=== PATIENT | female | born 1935 | race Caucasian/White ===

== ENCOUNTER 2021-05-11 09:24 | Inpatient (IN) | payer MEDICARE ==
[~2021-05-11] VITALS: Ht 160 cm; Wt 72.6 kg
[2021-05-11] MEDS ORDERED: CLINDAMYCIN HC150 MG PO (09:41)
[2021-05-11] MEDS ORDERED: TRAZODONE HCL150 MG PO (09:41)
[2021-05-11] MEDS ORDERED: MOBIC7.5 MG PO (09:42)
[2021-05-11] MEDS ORDERED: HYDROXYCHLOROQ200 MG PO (09:42)
[2021-05-11] MEDS ORDERED: PEPCID AC20 MG PO (09:42)
[2021-05-11] MEDS ORDERED: FLUOROMETHOLONE5 ML LEFT EYE (09:43)
[2021-05-11] MEDS ORDERED: XALATAN 0.0052.5 ML EACH EYE (09:43)
[2021-05-11] MEDS ORDERED: TRUSOPT 2 % OPT10 ML EACH EYE (09:43)
[2021-05-11] MEDS ORDERED: CARAFATE1 G PO (09:44)
[2021-05-11] MEDS ORDERED: ZOCOR40 MG PO (09:44)
[2021-05-11 09:47] LABS: BASOPHILS 0.1 % (0-2); EOSINOPHILS 0 % (0-7); HEMOGLOBIN 11.1 g/dL (13.5-17.5); LYMPHOCYTES 4.2 % (15-50); MCH 29.8 pg (26.0-34.0); MCHC 32.8 g/dL (31.0-37.0); MCV 90.9 fL (80.0-100.0); MEAN PLATELET VOLUME 7.8 fL (7.4-10.4); MONOCYTES 3.3 % (2-11); NEUTROPHILS 92.4 % (40-80); PLATELET COUNT 120 10x3/uL (130-400); RBC 3.74 10x6/uL (4.20-6.10); RDW 19.5 % (11.5-14.5); WBC 11.2 10x3/uL (4.8-10.8)
[2021-05-11 09:54] LABS: CALC OSMOLALITY 289 mosm/kg (275-300); CALCIUM 8.9 mg/dL (8.5-10.1); CARBON DIOXIDE 19.1 mmol/L (21.0-32.0); CHLORIDE - SERUM 105 mmol/L (98-107); CREATININE - SERUM 2.2 mg/dL (0.6-1.3); GLUCOSE 130 mg/dL (74-106); POTASSIUM - SERUM 4.2 mmol/L (3.5-5.1); SODIUM 141 mmol/L (136-145); UREA NITROGEN 32 mg/dL (7-18); eGFR NON AFRICAN AMERICAN 30 mL/min (90-120)
[2021-05-11 10:08] LABS: APTT 32.9 SECONDS (22.8-39.4); INR 1.56 (0.85-1.17); PROTIME 17.3 SECONDS (11.6-15.0)
[2021-05-11 10:09] LABS: ALBUMIN 3.4 g/dL (3.4-5.0); ALKALINE PHOSPHATASE 88 U/L (30-120); ALT (SGPT) 39 U/L (10-68); BILIRUBIN - TOTAL 0.72 mg/dL (0.2-1.3); CKMB 5.2 U/L (0.0-3.6); CREATINE KINASE 778 UL (21-232); PROTEIN - SERUM 6.9 g/dL (6.4-8.2); TROPONIN-I 0.027 ng/mL (0.000-0.060)
[2021-05-11 10:52] VITALS: BP 145/81
[2021-05-11 11:01] LABS: AMORPHOUS SEDIMENT MOD LPF (<FEW); BACTERIA MOD HPF (<MOD); BILIRUBIN NEGATIVE (NEGATIVE); GRANULAR CAST 2 LPF (0-1); KETONE NEGATIVE mg/dL (< 1+); NITRITE NEGATIVE (NEGATIVE); PH 5.5 (5.0-8.0); SQUAMOUS EPITHELIAL <1 HPF (0-4); UROBILINOGEN NORMAL mg/dL (< 2); WHITE CELLS - URINE >182 HPF (0-1)
[2021-05-11 14:18] VITALS: BP 114/82
[2021-05-11 18:26] VITALS: BP 122/49
--- NOTE | 2021-05-11 19:49 | NUR ---
NS INFUSING AT 100 ML/H WITH 600 ML REMAINING TO BE INFUSED ON TRANSFER TO THE FLOOR.
--- NOTE | 2021-05-11 19:49 | NUR ---
IV SITE WAS INFILTRATED. DC'D IV. NEW IV START AT L AC 20G.
--- NOTE | 2021-05-11 19:50 | NUR ---
DAUGHTER, DAVID KHAN IS AT BEDSIDE.
--- NOTE | 2021-05-11 19:52 | NUR ---
REPORT RECEIVED. PATIENT HAS IT MADE IT TO ROOM YET.
[2021-05-11 20:00] VITALS: BP 125/74
[2021-05-11 23:42] VITALS: BP 125/74; BMI 28.4
[2021-05-12] VITALS (7 sets, daily range): BP systolic 119–177; BP diastolic 41–67
--- NOTE | 2021-05-12 07:40 | NUR ---
Lying in bed, awake/alert/oriented to person, T/R freq for C/C, incont of B/B with use of incont pads ad laya, pericare provided with daily bath and PRN, daughter at bedside, denies pain/other discomfort at this time, call light/phone/water within reach, no s/s of acute distress observed.
[2021-05-12 08:13] LABS: BASOPHILS 0 % (0-2); EOSINOPHILS 0.4 % (0-7); HEMATOCRIT 29.3 % (42.0-54.0); HEMOGLOBIN 9.8 g/dL (13.5-17.5); LYMPHOCYTES 6.8 % (15-50); MCH 30.1 pg (26.0-34.0); MCHC 33.4 g/dL (31.0-37.0); MCV 90.1 fL (80.0-100.0); MEAN PLATELET VOLUME 7.8 fL (7.4-10.4); MONOCYTES 8.4 % (2-11); NEUTROPHILS 84.4 % (40-80); RBC 3.25 10x6/uL (4.20-6.10); RDW 19.2 % (11.5-14.5)
[2021-05-12 08:27] LABS: ALBUMIN 2.7 g/dL (3.4-5.0); ANION GAP 14.1 mmol/L (8-16); BILIRUBIN - TOTAL 0.57 mg/dL (0.2-1.3); CARBON DIOXIDE 20.9 mmol/L (21.0-32.0); CREATININE - SERUM 1.8 mg/dL (0.6-1.3); MAGNESIUM - SERUM 1.5 mg/dL (1.8-2.4); PHOSPHOROUS 3.4 mg/dL (2.5-4.9); PROTEIN - SERUM 5.9 g/dL (6.4-8.2)
--- NOTE | 2021-05-12 08:32 | NUR ---
Paged RAYMOND Weinstein r/t HR 104
[2021-05-12 08:52] LABS: PLATELET COUNT 82 10x3/uL (130-400); WBC 7.4 10x3/uL (4.8-10.8)
--- NOTE | 2021-05-12 14:40 | NUR ---
Resited to posterior LFA with 22 ga after 3 attempts, dick well
[2021-05-13] VITALS: BP 140/62
--- NOTE | 2021-05-13 02:31 | NUR ---
I have reviewed this patient and I concur with the Shift Assessment completed by the Licensed Practical Nurse today this shift.
[2021-05-13 04:00] VITALS: BP 154/69
[2021-05-13 06:00] LABS: BASOPHILS 0.1 % (0-2); EOSINOPHILS 0.2 % (0-7); HEMATOCRIT 25.2 % (42.0-54.0); HEMOGLOBIN 8.6 g/dL (13.5-17.5); LYMPHOCYTES 9.3 % (15-50); MCH 30.5 pg (26.0-34.0); MCHC 33.9 g/dL (31.0-37.0); MCV 90.1 fL (80.0-100.0); MEAN PLATELET VOLUME 8.4 fL (7.4-10.4); MONOCYTES 9.9 % (2-11); NEUTROPHILS 80.5 % (40-80); RDW 19.1 % (11.5-14.5); WBC 5.8 10x3/uL (4.8-10.8)
[2021-05-13 06:02] LABS: PLATELET COUNT 99 10x3/uL (130-400)
[2021-05-13 06:03] LABS: PLATELET ESTIMATE DECREASED
[2021-05-13 06:19] LABS: ALBUMIN 2.2 g/dL (3.4-5.0); ANION GAP 11.8 mmol/L (8-16); BILIRUBIN - TOTAL 0.34 mg/dL (0.2-1.3); CALCIUM 7.9 mg/dL (8.5-10.1); CARBON DIOXIDE 21.5 mmol/L (21.0-32.0); CREATININE - SERUM 1.4 mg/dL (0.6-1.3); MAGNESIUM - SERUM 1.7 mg/dL (1.8-2.4); PHOSPHOROUS 3.7 mg/dL (2.5-4.9); POTASSIUM - SERUM 4.3 mmol/L (3.5-5.1); PROTEIN - SERUM 5.3 g/dL (6.4-8.2)
--- NOTE | 2021-05-13 07:40 | NUR ---
Lying in bed, awake/alert/oriented, T/R freq for C/C, incont of B/B with use of incont pads, pericare provided with daily bath and PRN, denies pain/other discomfort at this time, no s/s of acute distress obsereved
[2021-05-13 07:44] VITALS: BP 161/65
--- NOTE | 2021-05-13 09:24 | NUR ---
REHAB PRESCREEN RECEIVED. PATIENT IS A MANAGED MEDICATE AND WILL REQUIRE AN OCCUPATIONAL THERAPY EVALUATION. I HAVE SPOKEN WITH JORDANA STEWART CASEMANAGER. SHE WILL WORK ON GETTING AN ORDER, AND ONCE COMPLETED I WILL PROCEED WITH A CHART SCREEN AND IF SHE MEETS CRITERIA, I WILL SUBMIT TO INSURANCE. THANK YOU FOR THE REFERRAL. REYNA WRIGHT RN CLINICAL LIAISON, INPATIENT REHAB.
[2021-05-13 11:10] VITALS: BP 150/60
[2021-05-13 15:37] VITALS: BP 170/63
[2021-05-13 23:38] VITALS: BP 177/73
--- NOTE | 2021-05-14 04:02 | NUR ---
PT WITH SOME CONFUSION AT THIS TIME. PT THINKS SHE IS AT HOME FOR BRIEF MOMENTS. PT ABLE TO ANSWER PERSON,PLACE,,YEAR. YIFAN AT BEDSIDE. TEMP 98.3.WILL CONTINUE TO MONITOR PT. ROOM EXTREAMLY HOT. FAN REQUESTED. WILL SEARCH HIGH AND LOW.
[2021-05-14 05:00] VITALS: BP 188/72
[2021-05-14 06:46] LABS: HEMOGLOBIN 8.4 g/dL (12-16); MCH 30.2 pg (26.0-34.0); MCHC 33.5 g/dL (31.0-37.0); MCV 90.1 fL (80.0-100.0); MEAN PLATELET VOLUME 7.5 fL (7.4-10.4); PLATELET COUNT 96 10x3/uL (130-400); RBC 2.78 10x6/uL (4.00-5.40); RDW 19.3 % (11.5-14.5)
[2021-05-14 07:09] LABS: ALBUMIN 2.2 g/dL (3.4-5.0); ANION GAP 15.7 mmol/L (8-16); BILIRUBIN - TOTAL 0.39 mg/dL (0.2-1.3); CALCIUM 7.6 mg/dL (8.5-10.1); CARBON DIOXIDE 19.2 mmol/L (21.0-32.0); CREATININE - SERUM 1.1 mg/dL (0.6-1.3); MAGNESIUM - SERUM 1.7 mg/dL (1.8-2.4); POTASSIUM - SERUM 3.9 mmol/L (3.5-5.1); PROTEIN - SERUM 4.8 g/dL (6.4-8.2)
[2021-05-14 07:10] LABS: PHOSPHOROUS 2.7 mg/dL (2.5-4.9)
--- NOTE | 2021-05-14 07:20 | NUR ---
Lying in bed, awake/alert/confused, T/R freq for C/C, purewick catheter in place and draining to CDB and incont of bowel with pericare provided with daily bath and PRN, no s/s of pain/other discomfort such as moaning/groaning/grimacing, call light/phone/water within reach, family at bedside, no s/s of acute distress observed.
--- NOTE | 2021-05-14 08:46 | NUR ---
PATIENT LOOKS LIKE SHE WOULD BE A GOOD CANDIDATE FOR INPATIENT REHAB. WE WILL SUBMIT TO [facility] TODAY FOR AUTHORIZATION. I HAVE DISCUSSED THIS WITH JORDANA STEWART CM. AGAIN, THANK YOU FOR THE REFERRAL. REYNA WRIGHT RN CLINICAL LIAISON, INPATIENT [facility].
[2021-05-14 08:58] LABS: % SATURATION 6 % (15-55); IRON 11 ug/dl (35-150); TOTAL IRON BIND CAPACITY 175 ug/dl (260-445); UNSAT IRON BIND CAPACITY 164 ug/dl (150-375)
[2021-05-14 09:00] VITALS: BP 153/60
[2021-05-14 09:35] LABS: FERRITIN 131 ng/mL (3-244)
[2021-05-14 09:38] LABS: ANISOCYTOSIS OCC; EOSINOPHILS 7 % (0-7); HYPOCHROMASIA OCC; LYMPHOCYTES 10 % (15-50); MONOCYTES 8 % (2-11); NEUTROPHILS 64 % (40-80); PLATELET ESTIMATE DECREASED; SMUDGE CELLS OCC; TOXIC GRANULATION OCC
[2021-05-14 10:00] VITALS: Ht 160 cm; Wt 72.6 kg
[2021-05-14 12:00] VITALS: BP 128/60
--- NOTE | 2021-05-14 22:17 | NUR ---
OT NOTE: PT COMPLETED SUPINE TO SIT WITH CGA-MIN A. PT COMPLETED ADL MOBILITY WITH CGA. PT COMPLETED TOILETING TASKS WITH CGA. PT REQUIRED MAX A FOR DOFF/TREVOR SOCKS. PT REQUIRED MAX A FOR TOILET HYGIENE. PT COMPLETED HAND HYGIENE WITH CGA. PT REQUIRED EXTRA TIME AND MIN VERBAL CUES FOR TASK COMPLETION. [phone] CHRISTIANE [place]
[2021-05-14 23:30] VITALS: BP 161/65
[2021-05-15 05:21] LABS: HEMATOCRIT 24.3 % (36.0-48.0); HEMOGLOBIN 8.2 g/dL (12-16); MCH 29.8 pg (26.0-34.0); MCHC 33.7 g/dL (31.0-37.0); MCV 88.5 fL (80.0-100.0); MEAN PLATELET VOLUME 7.6 fL (7.4-10.4); PLATELET COUNT 108 10x3/uL (130-400); RBC 2.75 10x6/uL (4.00-5.40); RDW 19.2 % (11.5-14.5); WBC 3.5 10x3/uL (4.8-10.8)
[2021-05-15 05:39] VITALS: BP 165/69
[2021-05-15 06:32] LABS: ALBUMIN 2.1 g/dL (3.4-5.0); ANION GAP 12.7 mmol/L (8-16); BILIRUBIN - TOTAL 0.29 mg/dL (0.2-1.3); CALCIUM 7.6 mg/dL (8.5-10.1); CARBON DIOXIDE 22.3 mmol/L (21.0-32.0); MAGNESIUM - SERUM 1.8 mg/dL (1.8-2.4); PROTEIN - SERUM 4.7 g/dL (6.4-8.2)
--- NOTE | 2021-05-15 07:20 | NUR ---
Lying in bed, awake/alert/oriented to self, purewick cath draining to CDB, cath care provided with daily bath and PRN, uses bedpan for bowel evac, pericare provided with daily bath and PRN, call light/phone/water within reach, family at bedside, no s/s of acute distress at this time.
--- NOTE | 2021-05-15 08:08 | NUR ---
Paged RAYMOND Weinstein r/t unknown BM status, no s/s of acute distress observed.
--- NOTE | 2021-05-15 08:09 | NUR ---
Call returned with N.O. for Mineral Oil 15 mL PO BID PRN.
[2021-05-15 08:14] LABS: ANA REFLEX - ANTICHROMATIN ABS <0.2 AI (0.0-0.9); ANA REFLEX - CENTROMERE B ABS <0.2 AI (0.0-0.9); ANA REFLEX - DBL STRANDED DNA 10 IU/mL (0-9); ANA REFLEX - DIRECT Positive (Negative); ANA REFLEX - JO-1 AB <0.2 AI (0.0-0.9); ANA REFLEX - RNP ANTIBODIES 0.2 AI (0.0-0.9); ANA REFLEX - SCL-70 <0.2 AI (0.0-0.9); ANA REFLEX - SJOGRENS AB SSA <0.2 AI (0.0-0.9); ANA REFLEX - SJOGRENS AB SSB <0.2 AI (0.0-0.9); ANA REFLEX - SMITH AB <0.2 AI (0.0-0.9)
--- NOTE | 2021-05-15 08:25 | NUR ---
Micro back with E-Coli in the urine, placed on Contact Isolation at this time. Educated present family member and pt, both stated understanding, no s/s of acute distres observed.
[2021-05-15 09:00] VITALS: BP 183/71
[2021-05-15 10:12] LABS: ANTI-GLOMERULAR BASMENT MEMBRN 2 units (0-20)
[2021-05-15 10:56] LABS: EOSINOPHILS 4 % (0-7); LYMPHOCYTES 26 % (15-50); MONOCYTES 11 % (2-11); NEUTROPHILS 58 % (40-80); PLATELET ESTIMATE NORMAL
[2021-05-15 10:57] LABS: ANISOCYTOSIS OCC; HYPOCHROMASIA OCC
--- NOTE | 2021-05-15 12:28 | NUR ---
OT NOTE: PT COMPLETED SUPINE TO SIT WITH MOD A. PT COMPLETED ADL MOBILITY TO TOILET WITH CGA-MIN A. PT REQUIRED TOTAL A FOR TOILET HYGIENE. PT COMPLETED UB HYGIENE WITH MIN A. PT REQUIRED MOD A FOR SIT TO SUPINE. PT REQUIRED MOD A FOR TREVOR SOCKS. [phone] THANK YOU,MARGY HARRIS
[2021-05-15 16:00] VITALS: BP 146/78
--- NOTE | 2021-05-15 19:17 | NUR ---
RECIEVED LAYING IN BED WITH HOB ELEVATED. DTR AT BEDSIDE.ALERT AND CONFUSED. REMAINS IN CONTACT ISOLATION. REQUIRES TOTAL CARE.
--- NOTE | 2021-05-15 20:34 | MORECARE ---
CASE MANAGEMENT DISCHARGE SUMMARY PATIENT: ORLY SHEARER UNIT: [id number] ADM DATE: 05/11/21 AGE: 86 : 36 SEX: F ROOM/BED: D.2100 AUTHOR: DONG,DOC PHYSICIAN: REFERRING PHYSICIAN: ERNST PETRESON MD DATE OF SERVICE: 05/15/21 Case Management Discharge Planning Summary COMMENTS ENTERED DATE: 05/15/21 20:27 CT COMMENT TYPE: Discharge Planning REVIEWER: Rosette Nguyen CM spoke with daughter and Great grand daughter on Phone about Rehab. CM explained that [facility] rehab will not have a bed available until May. Daughter requested patient go to [facility] in [place]. CM called and spoke with Natacha at [facility] and faxed records. Awaiting auth from [employer]. CM will continue to follow and assist as needed DCP REVIEW SUMMARY ANTICIPATED D/C DATE: EXPECTED LOS : CASE STATUS: DCP Initiated INITIAL REVIEW: 05/11/2021 INITIAL REVIEWER: Rosette Nguyen FINAL DISCHARGE DISPOSITION: : FINAL REVIEWER: FINAL REVIEW DATE: DCP [facility] Questions & Answers QUESTION: ANSWER : PATIENT: ORLY SHEARER ENCOUNTER: [id number] MEDICAL RECORD#: [id number] ADMISSION DATE: 05/11/2021 DISCHARGE DATE: ATTENDING MD: ERNST ZAVALA : AGE: 86 MARITAL STATUS: W DC PLAN ID: [id number] FACILITY: [facility] PRINTED ON: 05/15/21 20:34 CT All edits/amendments must be made on the electronic document DICTATION DATE: 05/15/212033 PYTHON DJANGO DEVELOPER: NATALY 05/15/212033 RPT#: [id number] DC DATE: STATUS: ADM IN [address] [address] END OF REPORT
[2021-05-15 21:06] VITALS: BP 176/58
[2021-05-16 02:09] VITALS: BP 175/65
[2021-05-16 06:25] LABS: BASOPHILS 0.2 % (0-2); EOSINOPHILS 4.9 % (0-7); HEMATOCRIT 28.3 % (36.0-48.0); HEMOGLOBIN 9.4 g/dL (12-16); LYMPHOCYTES 12.4 % (15-50); MCH 29.4 pg (26.0-34.0); MCHC 33.1 g/dL (31.0-37.0); MCV 88.6 fL (80.0-100.0); MEAN PLATELET VOLUME 6.9 fL (7.4-10.4); MONOCYTES 17.9 % (2-11); NEUTROPHILS 64.6 % (40-80); RDW 19.2 % (11.5-14.5); WBC 4.2 10x3/uL (4.8-10.8)
[2021-05-16 06:45] LABS: PLATELET COUNT 136 10x3/uL (130-400)
[2021-05-16 06:47] VITALS: BP 180/62
--- NOTE | 2021-05-16 07:00 | NUR ---
RECEIVED REPORT. ASSUMED CARE OF PATIENT. RESTING IN BED WITH EYES OPEN, DAUGHTER AT BEDSIDE. PATIENT STATES SHE FEELS SO MUCH BETTER TODAY. STILL WITHOUT IV ACCESS. BEDSIDE SHIFT REPORT COMPLETE, WHITE BOARD UPDATED. NO DISTRESS.
[2021-05-16 07:20] LABS: ALBUMIN 2.4 g/dL (3.4-5.0); ANION GAP 12.5 mmol/L (8-16); BILIRUBIN - TOTAL 0.42 mg/dL (0.2-1.3); CALCIUM 8.4 mg/dL (8.5-10.1); CARBON DIOXIDE 24.2 mmol/L (21.0-32.0); MAGNESIUM - SERUM 1.7 mg/dL (1.8-2.4); PHOSPHOROUS 2.5 mg/dL (2.5-4.9); POTASSIUM - SERUM 3.7 mmol/L (3.5-5.1); PROTEIN - SERUM 5.3 g/dL (6.4-8.2)
--- NOTE | 2021-05-16 07:47 | NUR ---
PATIENT REMAINS IN CONTACT ISOLATION FOR ECOLI IN URINE.
[2021-05-16 09:11] VITALS: BP 178/76
--- NOTE | 2021-05-16 10:19 | NUR ---
22 GAUGE IV PLACED TO LEFT FOREARM X 1 STICK. GOOD BLOOD RETURN, EASY FLUSH. TAPED, DATED AND SECURED. IV FLUIDS NOW INFUSING ORDERED. NO DISTRESS. TOLERATED IV PLACEMENT WELL. GRANDDAUGHTER AT BEDSIDE.
[2021-05-16 16:39] VITALS: BP 174/69
--- NOTE | 2021-05-16 19:00 | NUR ---
REPORT RECEIVED. PATIENT IS AAOX4, LYING IN SEMI-FOWLERS POSITION. NO S/S OF DISTRESS OBSERVED. RR EVEN AND UNLABORED ON 2L O2 VIA NC. PIV TO LT FA, PATENT, INFUSING NS @ 100ML/HR. PURWICK IN PLACE. FAMILY MEMEBER AT BEDSIDE. PATIENT DENIES NEEDS AT THIS TIME. CL IN REACH, BED LOCKED AND LOWERED. WILL CPOC.
[2021-05-16 20:59] VITALS: BP 154/53
[2021-05-17] VITALS: BP 160/57
[2021-05-17 04:30] VITALS: BP 166/60
[2021-05-17 05:12] LABS: BASOPHILS 0.3 % (0-2); EOSINOPHILS 6.8 % (0-7); HEMATOCRIT 25.6 % (36.0-48.0); HEMOGLOBIN 8.5 g/dL (12-16); LYMPHOCYTES 18.6 % (15-50); MCH 29.3 pg (26.0-34.0); MCV 88.8 fL (80.0-100.0); MONOCYTES 17.3 % (2-11); RBC 2.89 10x6/uL (4.00-5.40); WBC 4.2 10x3/uL (4.8-10.8)
[2021-05-17 05:26] LABS: PLATELET COUNT 172 10x3/uL (130-400)
[2021-05-17 05:32] LABS: ALBUMIN 2.1 g/dL (3.4-5.0); ANION GAP 10.8 mmol/L (8-16); BILIRUBIN - TOTAL 0.33 mg/dL (0.2-1.3); CALCIUM 8.2 mg/dL (8.5-10.1); CARBON DIOXIDE 25.7 mmol/L (21.0-32.0); CREATININE - SERUM 1.1 mg/dL (0.6-1.3); PHOSPHOROUS 3.1 mg/dL (2.5-4.9); POTASSIUM - SERUM 3.5 mmol/L (3.5-5.1); PROTEIN - SERUM 5.3 g/dL (6.4-8.2); THYROID STIMULATING HORMONE 1.27 uIU/mL (0.36-3.74)
--- NOTE | 2021-05-17 07:00 | NUR ---
RECEIVED REPORT. ASSUMED CARE OF PATIENT. CALL LIGHT WITHIN REACH. RESTING PEACEFULLY WITH EYES CLOSED, RESP EVEN AND UNLABORED. GRANDDAUGHTER AT BEDSIDE. WHITE BOARD UPDATED, BEDSIDE SHIFT REPORT COMPLETE. NO DISTRESS.
[2021-05-17 08:55] VITALS: BP 180/67
--- NOTE | 2021-05-17 15:40 | NUR ---
PATIENT RESTING IN BED WITH EYES CLOSED. TRAMADOL EFFECTIVE FOR NECK AND BACK PAIN. PATIENT FAMILY AT BEDSIDE.
[2021-05-17 20:39] VITALS: BP 154/54
[2021-05-18 01:57] VITALS: BP 167/64
[2021-05-18 05:52] VITALS: BP 158/63
[2021-05-18 06:13] LABS: BASOPHILS 0.5 % (0-2); EOSINOPHILS 7.1 % (0-7); HEMATOCRIT 25.4 % (36.0-48.0); HEMOGLOBIN 8.4 g/dL (12-16); LYMPHOCYTES 18.7 % (15-50); MCH 29.2 pg (26.0-34.0); MCV 88.6 fL (80.0-100.0); MEAN PLATELET VOLUME 6.9 fL (7.4-10.4); MONOCYTES 14.8 % (2-11); NEUTROPHILS 58.9 % (40-80); RBC 2.87 10x6/uL (4.00-5.40); RDW 18.8 % (11.5-14.5); WBC 4.6 10x3/uL (4.8-10.8)
[2021-05-18 06:40] LABS: PLATELET COUNT 222 10x3/uL (130-400)
[2021-05-18 06:41] LABS: ANION GAP 11.5 mmol/L (8-16); BILIRUBIN - TOTAL 0.26 mg/dL (0.2-1.3); CALCIUM 7.7 mg/dL (8.5-10.1); CARBON DIOXIDE 23.3 mmol/L (21.0-32.0); POTASSIUM - SERUM 3.8 mmol/L (3.5-5.1); PROTEIN - SERUM 5.3 g/dL (6.4-8.2)
--- NOTE | 2021-05-18 07:00 | NUR ---
RECEIVED REPORT. ASSUMED CARE OF PATIENT. PATIENT LYING IN BED WITH EYES OPEN, PATIENT FAMILY AT BEDSIDE. PATIENT DENIES NEEDS AT THIS TIME. BEDSIDE SHIFT REPORT COMPLETE, WHITE BOARD UPDATED. NO DISTRESS.
[2021-05-18 08:00] VITALS: BP 121/61
[2021-05-18] MEDS ORDERED: XANAX0.25 MG PO (11:42)
[2021-05-18] MEDS ORDERED: Mineral Oil PO (11:42)
[2021-05-18] MEDS ORDERED: NORVASC10 MG PO (11:42)
[2021-05-18] MEDS ORDERED: COZAAR50 MG PO (11:42)
[2021-05-18] MEDS ORDERED: IPRAT-ALBUT 0.5-3 ML UPD (11:42)
[2021-05-18] MEDS ORDERED: ACETAMINOPHEN500 M1 PO (11:42)
[2021-05-18] MEDS ORDERED: ULTRAM50 MG PO (11:42)
[2021-05-18] MEDS ORDERED: ACETAMINOPHEN325 MG PO (11:42)
[2021-05-18] MEDS ORDERED: MUCINEX600 MG PO (11:42)
[2021-05-18] MEDS ORDERED: FLORAJEN DIGES1 EACH PO (11:42)
[2021-05-18] MEDS ORDERED: ZOCOR20 MG PO (11:42)
[2021-05-18 12:00] VITALS: BP 151/57
--- NOTE | 2021-05-18 14:13 | NUR ---
22 GAUGE IV REMOVED FROM LEFT FOREARM. CATHETER TIP INTACT. NO BLEEDING FROM SITE. 2X2 GAUZE APPLIED AND SECURED WITH BANDAID. TOELRATED IV REMOVAL WELL.
--- NOTE | 2021-05-18 14:14 | NUR ---
TELEMETRY REMOVED AND RETURNED TO ICU INFRASTRUCTURE ANALYST VIA RODOLFO PRIETO.
--- NOTE | 2021-05-18 14:22 | NUR ---
CALL [facility] TO GIVE REPORT, ON HOLD FOR 7:08 MINUTES AND NOBODY EVER CAME BACK ON THE LINE. THIS TERRAZZO MECHANIC HUNG UP.
--- NOTE | 2021-05-18 14:56 | NUR ---
PATIENT LEFT UNIT VIA WHEELCHAIR WITH [facility]NCORE STAFF. EXPLAINED TO [facility]NCORE STAFF THAT UNABLE TO GIVE REPORT. ENCORE STAFF STATES TODAY IS MONTHLY MEETING AND THEY SHOULD HAVE TAKEN A MESSAGE. GAY IS THE NURSE THAT WILL BE RECEIVING THE PATIENT AND SHE WILL CALL THIS NURSE WHEN SHE HAS TIME UPON PATIENT ARRIVAL AT THE FACILITY.
--- NOTE | 2021-05-18 16:04 | MORECARE ---
CASE MANAGEMENT DISCHARGE SUMMARY PATIENT: ORLY SHEARER UNIT: [id number] ADM DATE: 05/11/21 AGE: 86 : 36 SEX: F ROOM/BED: D.2101 AUTHOR: DONG,DOC PHYSICIAN: REFERRING PHYSICIAN: ERNST PETERSON MD DATE OF SERVICE: 05/18/21 Case Management Discharge Planning Summary COMMENTS ENTERED DATE: 05/15/21 20:27 CT COMMENT TYPE: Discharge Planning REVIEWER: Rosette Nguyen CM spoke with daughter and Great grand daughter on Phone about Rehab. CM explained that [facility] rehab will not have a bed available until May. Daughter requested patient go to [facility] in [place]. CM called and spoke with Natacha at [facility] and faxed records. Awaiting auth from [facility]. CM will continue to follow and assist as needed DCP REVIEW SUMMARY ANTICIPATED D/C DATE: EXPECTED LOS : CASE STATUS: DCP Initiated INITIAL REVIEW: 05/11/2021 INITIAL REVIEWER: Rosette Nguyen FINAL DISCHARGE DISPOSITION: : FINAL REVIEWER: FINAL REVIEW DATE: DCP [facility] Questions & Answers QUESTION: ANSWER : PATIENT: ORLY SHEARER ENCOUNTER: [id number] MEDICAL RECORD#: [id number] ADMISSION DATE: 05/11/2021 DISCHARGE DATE: 05/18/2021 ATTENDING MD: ERNST ZAVALA : AGE: 86 MARITAL STATUS: W DC PLAN ID: [id number] FACILITY: [facility] PRINTED ON: 05/18/21 16:04 CT All edits/amendments must be made on the electronic document DICTATION DATE: 05/18/21 1604 MANDREL CLEANER: DM 05/18/21 1604 RPT#: [id number] DC DATE:05/18/21 STATUS: DIS IN [place] [id number] [place] [address] END OF REPORT
[2021-05-19 18:08] LABS: ANCA - ANTIMYELOPEROXIDASE <9.0 U/mL (0.0-9.0); ANCA - ANTIPROTEINASE 3 <3.5 U/mL (0.0-3.5); ANCA - CYTOPLASMIC <1:20 titer (Neg:<1:20); ANCA - PERINUCLEAR <1:20 titer (Neg:<1:20)
--- NOTE | 2021-05-19 18:57 | MORECARE ---
CASE MANAGEMENT DISCHARGE SUMMARY PATIENT: ORLY SHEARER UNIT: [id number] ADM DATE: 05/11/21 AGE: 86 : 36 SEX: F ROOM/BED: D.2102 AUTHOR: DONG,DOC PHYSICIAN: REFERRING PHYSICIAN: ERNST PETERSON MD DATE OF SERVICE: 05/19/21 Case Management Discharge Planning Summary COMMENTS ENTERED DATE: 05/15/21 20:27 CT COMMENT TYPE: Discharge Planning REVIEWER: Rosette Nguyen CM spoke with daughter and Great grand daughter on Phone about Rehab. CM explained that [facility] rehab will not have a bed available until May. Daughter requested patient go to [facility] in [place]. CM called and spoke with Natacha at [facility] and faxed records. Awaiting auth from [employer]. CM will continue to follow and assist as needed DCP REVIEW SUMMARY ANTICIPATED D/C DATE: EXPECTED LOS : CASE STATUS: DCP Initiated INITIAL REVIEW: 05/11/2021 INITIAL REVIEWER: Rosette Nguyen FINAL DISCHARGE DISPOSITION: : FINAL REVIEWER: FINAL REVIEW DATE: DCP [facility] Questions & Answers QUESTION: ANSWER : PATIENT: ORLY SHEARER ENCOUNTER: [id number] MEDICAL RECORD#: [id number] ADMISSION DATE: 05/11/2021 DISCHARGE DATE: 05/18/2021 ATTENDING MD: ERNST ZAVALA : AGE: 86 MARITAL STATUS: W DC PLAN ID: [id number] FACILITY: [facility] PRINTED ON: 05/19/21 18:57 CT All edits/amendments must be made on the electronic document DICTATION DATE: 05/19/211856 DISTRICT SERVICE MANAGER: NATALY 05/19/211856 RPT#: [id number] DC DATE:05/18/21 STATUS: DIS IN [address] [place] [address] END OF REPORT
--- NOTE | 2021-05-20 09:08 | MORECARE ---
CASE MANAGEMENT DISCHARGE SUMMARY PATIENT: ORLY SHEARER UNIT: [id number] ADM DATE: 05/11/21 AGE: 86 : 36 SEX: F ROOM/BED: D.210 AUTHOR: DONG,DOC PHYSICIAN: REFERRING PHYSICIAN: ERNST PETERSON MD DATE OF SERVICE: 05/20/21 Case Management Discharge Planning Summary COMMENTS ENTERED DATE: 05/15/21 20:27 CT COMMENT TYPE: Discharge Planning REVIEWER: Rosette Nguyen CM spoke with daughter and Great grand daughter on Phone about Rehab. CM explained that [facility] rehab will not have a bed available until May. Daughter requested patient go to [facility] in [place]. CM called and spoke with Natacha at [facility] and faxed records. Awaiting auth from [employer]. CM will continue to follow and assist as needed DCP REVIEW SUMMARY ANTICIPATED D/C DATE: EXPECTED LOS : CASE STATUS: DCP Initiated INITIAL REVIEW: 05/11/2021 INITIAL REVIEWER: Rosette Nguyen FINAL DISCHARGE DISPOSITION: : FINAL REVIEWER: FINAL REVIEW DATE: DCP [facility] Questions & Answers QUESTION: ANSWER : PATIENT: ORLY SHEARER ENCOUNTER: [id number] MEDICAL RECORD#: [id number] ADMISSION DATE: 05/11/2021 DISCHARGE DATE: 05/18/2021 ATTENDING MD: ERNST ZAVALA : AGE: 86 MARITAL STATUS: W DC PLAN ID: [id number] FACILITY: [facility] PRINTED ON: 05/20/21 9:08 CT All edits/amendments must be made on the electronic document DICTATION DATE: 05/20/21 09 EARLY CHILDHOOD COORDINATOR: DM 05/20/21 09 RPT#: [id number] DC DATE:05/18/21 STATUS: DIS IN [address] [place] [address] END OF REPORT
== END 2021-05-18 14:56 | DRG 682 ==
LOC: D.ER 09:24 → D.EDHOLD 14:15 → EDSEX 14:15 → D.M2 14:15
PROVIDERS: Family Medicine; Internal Medicine Pulmonary Disease; ADMIT Emergency Medicine; ATTEND Emergency Medicine
DX: N17.9 Acute kidney failure, unspecified (principal); G93.41 Metabolic encephalopathy; N39.0 Urinary tract infection, site not specified; E86.0 Dehydration; R52 Pain, unspecified; M32.9 Systemic lupus erythematosus, unspecified; E78.5 Hyperlipidemia, unspecified; K21.9 Gastro-esophageal reflux disease without esophagitis; G47.36 Sleep related hypoventilation in conditions classified elsewhere; M19.90 Unspecified osteoarthritis, unspecified site; F32.9 Major depressive disorder, single episode, unspecified; F41.9 Anxiety disorder, unspecified; Z99.81 Dependence on supplemental oxygen; R41.82 Altered mental status, unspecified; D64.9 Anemia, unspecified; D69.6 Thrombocytopenia, unspecified; G25.0 Essential tremor; R53.81 Other malaise